=== PATIENT | female | born 1980 | race Caucasian/White ===

== ENCOUNTER 2023-09-23 04:52 | Emergency (ER) | payer OTHER, SELFPAY ==
[2023-09-23 05:04] VITALS: PULSE 70; O2SAT 100
[2023-09-23 05:05] VITALS: BP 116/56; PULSE 71; O2SAT 100
[2023-09-23 05:06] VITALS: BP 116/56; PULSE 70; RESP 18; TEMP 36.8; O2SAT 100; BMI 29.8
--- NOTE | 2023-09-23 05:29 | DI.CT.S_ITS ---
PROCEDURE: CT ABDOMEN PELVIS W CON INDICATIONS: debilitating nausea and weight loss TECHNIQUE: After the administration of intravenous contrast, axial sections acquired from the lung bases to the pubic symphysis. Coronal and sagittal reformats were performed. For radiation dose reduction, the following was used: automated exposure control, adjustment of mA and/or kV according to patient size. COMPARISON: None. FINDINGS: Image quality: Diagnostic. Lower Chest: No significant findings. ABDOMEN: Liver: No solid mass. Gallbladder: Question gallstones. No wall thickening. Biliary ducts: No biliary dilation. Pancreas: No ductal dilation. Spleen: Size is within normal limits. Adrenal Glands: No adrenal nodules. Kidneys and Ureters: No hydronephrosis. No solid mass. No complex renal cystic lesion which requires follow up. Stomach and Bowel: Normal colonic caliber, without significant wall thickening. Diverticulosis. No acute diverticulitis. Peritoneum: No abnormal intraperitoneal fluid. No free air. Ventral Wall: No significant ventral hernia. Abdominal Nodes: No retroperitoneal or mesenteric adenopathy by size criteria. Vessels: Aorta and inferior vena cava are normal in size. PELVIS: Pelvic Organs: There is a 2.5 x 3.7 cm left ovarian cyst. Right ovary is unremarkable. Uterus is grossly normal. Cervix is prominent. No pathological free-fluid in pelvis.. Bladder: Bladder is not fully distended. There is mild perivesical stranding suggesting cystitis. Pelvic Nodes: No enlarged lymph nodes. Miscellaneous: No inguinal hernias are seen. Bones: No aggressive osseous abnormality. IMPRESSION: 1. Mild perivesical stranding suggesting cystitis. 2. Diverticulosis without diverticulitis. 3. Suspect cholelithiasis. No CT findings to suggest acute cholecystitis. No significant discrepancy with the night guard radiology preliminary report. Dictated by: Fermín Dalton M.D. on 09/23/2023 at 8:36 Approved by: Fermín Dalton M.D. on 09/23/2023 at 8:41
[2023-09-23 05:30] VITALS: BP 114/56; PULSE 68; O2SAT 100
--- NOTE | 2023-09-23 05:32 | ED.NAVMDI ---
HPI - Nausea/Vomiting/Diarrhea General Chief complaint: Nausea/Vomiting/Diarrhea Stated complaint: shakes, sweats, chills, nausea Time Seen by Provider: 09/23/23 05:08 Source: patient Mode of arrival: Ambulatory History of Present Illness HPI Narrative: 42-year-old woman with a six-month history of debilitating nausea occasional vomiting over 40 lb weight loss presents with debilitating nausea. She has been seen 3 times at [facility] including yesterday morning. Blood work has been unremarkable. She finds that she responds better to Phenergan than she does to Zofran but Zofran can occasionally be helpful. She has seen her primary care doctor was referred to Gastroenterology with whom she had a consultation yesterday. She is going to be scheduled for both upper and lower endoscopy. She does vape marijuana and has considered the possibility of cannabinoid hyperemesis syndrome. She has not found that hot showers have been particularly helpful in controlling the severe nausea, they are helpful with anxiety overall. She is willing to completely discontinue marijuana for 6 months to see if this is influencing her symptoms. She describes a lifelong history of GI difficulties most consistent with irritable bowel syndrome as well as lactose intolerance. Her was recently deployed so stressors were a bit higher however he has been home for the last couple of weeks and her symptoms have not significantly improved. She notes when she does have episodes of severe nausea she has abdominal cramping, profuse diaphoresis. She has recently been diagnosed with significant anemia and despite iron supplementation does not seem to be absorbing iron well. She is scheduled for IV iron infusion in the near future. She does have continued heavy menstrual cycles and has been referred to gynecology for additional evaluation. When symptoms 1st started she did have ultrasound of the right upper quadrant that did not suggest gallstones. She does not describe reflux type symptoms. Has not noted black or tarry stools nor any bloody emesis. Only medication is 50 mg of Zofran and she has been on this same dose of medication for over 2 years. Related Data Previous Rx's Medication Instructions Recorded metoclopramide HCl 10 mg tablet 10 mg PO Q6H PRN nausea and 09/23/23 vomiting #60 tabs promethazine 25 mg tablet 25 mg PO TID PRN nausea and 09/23/23 vomiting #30 tabs Allergies Allergy/AdvReac Type Severity Reaction Status Date / Time No Known Drug Allergies Allergy Verified 09/23/23 05:16 Review of Systems Review of Systems Narrative: Pertinent positive and negative findings as per HPI Patient History Medical History (Updated 09/23/23 @ 05:47 by Barbara Wright MD) Nausea alone Iron deficiency anemia Social History Smoking Status: Never smoker Smoking Status: Never smoker Exam Initial Vital Signs Initial Vital Signs: Vital Signs Temperature 98.2 F 09/23/23 05:06 Pulse Rate 70 09/23/23 05:06 Respiratory Rate 18 09/23/23 05:06 Blood Pressure 116/56 L 09/23/23 05:06 Pulse Oximetry 100 09/23/23 05:06 Oxygen Delivery Method Room Air 09/23/23 05:06 General: Healthy appearing, mildly diaphoretic, waves of nausea but Able to give a complete and coherent history. Well-nourished well-developed HEENT: Moist mucous membranes, normal sclera with reactive pupils, Respiratory: Lungs are clear to auscultation, no wheezing no rales no rhonchi. Full and symmetrical air movement Cardiac: Regular rate and rhythm no murmurs no bruits Abdomen: Soft, mild tenderness in the upper quadrant without rebound or guarding. Slight distention with discomfort in the lower quadrants as well. No flank pain Neurologic: Grossly neurologically intact with no obvious asymmetries or abnormalities Extremities: No trauma, well perfused Psych: Cooperative, appropriate insight and affect Course Orders Ordered: ED Orders 09/23/23 05:20 HCG Quantitative /Beta subunit Stat 09/23/23 05:29 CT abdomen pelvis w con Stat Discontinued Medications Sodium Chloride (Normal Saline 0.9%) 1,000 mls @ 1,000 mls/hr IV BOLUS ONE Stop: 09/23/23 06:28 Last Infusion: 09/23/23 06:42 Dose: Infused Documented By: Admin: 09/23/23 05:35 Dose: 1,000 mls/hr Documented By: Metoclopramide HCl (Metoclopramide 10 Mg/2 Ml Inj) 10 mg IV NOW ONE Stop: 09/23/23 05:30 Last Admin: 09/23/23 05:35 Dose: 10 mg Documented By: AB Vital Signs Vital signs: Vital Signs - 8 hr 09/23/23 05:06 Temperature 98.2 F Pulse Rate 70 Respiratory Rate 18 Blood Pressure 116/56 L Pulse Oximetry 100 Oxygen Delivery Method Room Air MDM - Nausea/Vomiting/Diarrhea Lab Data Labs: Lab Results 09/23/23 Range/Units 05:20 HCG, Quant < 2.4 mIU/mL MDM Narrative Medical decision making narrative: CC: Debilitating morning nausea Complicating co-morbidities: 40 lb weight loss over the last 6 months concurrent with nausea, regular marijuana user, irritable bowel syndrome, lactose intolerance, iron-deficiency anemia, heavy menstrual cycle, Data collected from: patient Social determinants of health that may influence the patients condition: Medical records reviewed: Records from [facility] from yesterday are reviewed. She presented for similar findings. She improved with Phenergan was discharged home Differential considered:neoplastic process, hCG producing tumor, gastroparesis, cannabinoid hyperemesis syndrome, anxiety, gallbladder dysfunction, gastric outlet obstruction, abdominal migraine Exam documented above, pertinent findings include: Patient appears uncomfortable with her profuse nausea no actual vomiting. Mild diffuse abdominal tenderness Lab Test results independently reviewed as above. Pertinent findings: Labs done at [facility] less than 24 hours ago include a CBC showing white blood cell count at 9.2, H and H at 8.0 and 27.5 MCV is 65.8. Platelets are appropriate at 2:03 a.m. Chemistries are reassuring with normal creatinine at 0.7, no liver abnormalities appreciated Lipase is within normal limits Imaging studies independently reviewed: CT scan of the abdomen suggests bladder wall thickening however there is no clinical correlation to suggest bladder infection. No who stasis, colitis, diverticulitis, bowel obstruction, obstructive uropathy or acute appendicitis. Findings are reviewed with the patient as well Treatments: Fluids, parenteral Reglan Discussion: 6 months of debilitating nausea typically worse in the morning. Today she has had gallbladder ultrasound that did not show gallstone she has not had a HIDA study. She has had GI consult and is scheduled for upcoming upper and lower endoscopy. She has never had any imaging of her abdomen and a CT scan is done today showing no significant pathology to explain her symptoms. We did discuss stopping marijuana completely for 6 months to see if this helps she is willing to do so. We will send her home with prescriptions for Reglan to see if this helps prophylactically, Phenergan if symptoms continue to persist, she has a prescription for Zofran waiting to be picked up at the pharmacy. Findings, concerns, suggested next steps in her workup are all reviewed, questions are answered and she is safe for discharge Discharge Plan Departure Patient Disposition: Home Clinical Impression: Nausea, Abnormal weight loss Instructions: DI for Nausea -- Adult Activity Restrictions/Additional Instructions: Thank you for coming in today. Debilitating nausea can be incredibly frustrating I did not repeat blood work today as labs were unremarkable at [facility] yesterday. We did do a CT scan of your abdomen and pelvis that did not show any acute pathology. You have had a gallbladder ultrasound that did not show gallstones. You may consider discussing a HIDA study with your primary care doctor to further assess gallbladder function It will be important to follow through with scheduling upper and lower endoscopies as discussed with your cement mason maintenance In terms of medication to help with symptoms, I would recommend completely stopping marijuana for 6 months. I have given you a prescription for Phenergan which can make you sleepy and directly treats nausea. I have also given you a prescription for Reglan/metoclopramide which increases gastric motility so food moves through faster. This can be quite helpful prophylactically and can be taken before meals and before bed. This is a common medication we use to help treat gastroparesis. Prescriptions: New metoclopramide HCl 10 mg tablet 10 mg PO Q6H PRN (Reason: nausea and vomiting) Qty: 60 0RF promethazine 25 mg tablet 25 mg PO TID PRN (Reason: nausea and vomiting) Qty: 30 0RF Referrals: Sheron Lewis FNP-C [Primary Care Provider] - Stand Alone Forms: Patient Portal/API
[2023-09-23] MEDS: SODIUM CHLORIDE 0.9% 1,000 ML 1000 ML IV (05:35)
[2023-09-23] MEDS: METOCLOPRAMIDE 10 MG/2 ML INJ IV (05:35)
--- NOTE | 2023-09-23 05:46 | PC.NURSE ---
Pt states that she has been having off and on issues with nausea and being see by GI specialist. However, she was seen yesterday and now today for continued nausea symptoms.
[2023-09-23 05:59] LABS: HCG Quantitative /Beta subunit < 2.4 mIU/mL
[2023-09-23 06:00] VITALS: PULSE 65; O2SAT 99
[2023-09-23 06:30] VITALS: PULSE 77; O2SAT 100
== END 2023-09-23 07:17 | disposition home or self-care (01) ==
PROVIDERS: Emergency Provider Emergency Medicine; PCP Nurse Practitioner Family
DX: R11.2 Nausea with vomiting, unspecified (principal); R63.4 Abnormal weight loss
CPT/HCPCS: 36415; 74177; 84702; 96361; 96374; 99284; J2765; Q9967

== ENCOUNTER 2024-03-21 07:22 | Emergency (ER) | payer OTHER, SELFPAY ==
[2024-03-21 07:29] VITALS: BP 117/51; PULSE 60; O2SAT 100
[2024-03-21 07:30] VITALS: BP 117/51; PULSE 59; PULSE 62; RESP 16; TEMP 36.9; O2SAT 100; O2SAT 99; BMI 29.8
--- NOTE | 2024-03-21 07:43 | ED.ANXIETY ---
HPI - Anxiety General Chief Complaint: Anxiety Stated Complaint: axiety attack, nausea Time Seen by Provider: 03/21/24 07:43 History of Present Illness HPI narrative: Patient is a 43-year-old female with a history of debilitating nausea with occasional vomiting has been seen in the past multiple times at different hospitals for the same. She tends to respond to Phenergan, has seen primary care and GI in the past. There was concern that patient may have cannabinoid hyperemesis but has a ?lifelong history of GI problems as well as lactose intolerance states that this has been under control over past several months and weeks given the fact that she was started on sertraline 75 mg as well as Reglan. However she states that all of her medications do not have any refills, called her primary care doctor but they are at the [employer] [facility] are unable to get in any sooner. She comes in complaining of increased anxiety, typical acid reflux with nausea. But denies any actual chest pain shortness of breath. She is requesting some of her medications here because she knows that this has helped in the past. She states that she was feeling fine until she stopped taking her sertraline because she was not able to get the refill. She states that she is frustrated because she was finally feeling better after he is medications and now she feels like she is ?going backwards. Related Data Previous Rx's Medication Instructions Recorded metoclopramide HCl 10 mg tablet 10 mg PO Q6H PRN nausea and 09/23/23 vomiting #60 tabs promethazine 25 mg tablet 25 mg PO TID PRN nausea and 09/23/23 vomiting #30 tabs hydroxyzine HCl 25 mg tablet 25 mg PO BID PRN anxiety 7 days #7 03/21/24 tabs sertraline 50 mg tablet 75 mg (1.5 x 50 mg) PO DAILY 2 03/21/24 weeks #21 tabs Allergies Allergy/AdvReac Type Severity Reaction Status Date / Time No Known Drug Allergies Allergy Verified 09/23/23 05:16 Review of Systems Review of Systems Narrative: General: Denies fever, chills, weight loss HEENT: Denies headache, eye drainage, eye irritation, head trauma, sore throat, voice change Cardiovascular: Denies any chest pain, palpitations, shortness of breath, tachycardia Respiratory: Denies any shortness of breath, cough, wheeze, stridor GI/: Positive for nausea,Denies any abdominal pain, vomiting, diarrhea, bright red blood per rectum, melanotic stools, urinary frequency, urinary retention, dysuria, hematuria MSK: Denies any joint pain, muscle pains, swelling Skin: Denies any rashes, lesions, discoloration Neuro: Denies any headache, lightheadedness, dizziness, fainting, weakness, positive for anxiety Psych: Denies SI/HI Patient History Medical History (Updated 03/21/24 @ 08:41 by Frantz Park DO) Nausea alone Iron deficiency anemia Social History Smoking Status: Never smoker Smoking Status: Never smoker Exam Narrative Exam Narrative: General: Cooperative, comfortable, well-developed, not in acute distress HEENT: Normocephalic, atraumatic, PERRLA, normal sclera, eyelids normal, Neck: Active full range of motion, atraumatic Chest: Normal to inspection, negative crepitus, no overlying erythema ecchymosis Respiratory: Normal respiratory effort, not in acute respiratory distress, clear to auscultation bilaterally negative cough, wheeze, tachypnea, rhonchi, rales Cardiology: Regular rate rhythm negative gallop, murmur, rubs GI/: Normal to inspection, soft, nonrigid, no tenderness to palpation, exam deferred MSK: Full range of active range of motion of all 4 extremities, atraumatic Skin: No rashes lesions noted Neuro: Alert awake oriented x3, moves all 4 extremities spontaneously, cranial nerves intact, able to answer all questions appropriately follows commands appropriately Psych: Cooperative, negative suicidal or homicidal ideations, patient tearful Initial Vital Signs Initial Vital Signs: Vital Signs Pulse Rate 60 03/21/24 07:29 Blood Pressure 117/51 L 03/21/24 07:29 Pulse Oximetry 100 03/21/24 07:29 Course Orders Ordered: ED Orders 03/21/24 08:00 BMP [Basic Metabolic Panel] Stat CBC Auto Diff [Complete Blood Count AUTO DIFF] Stat Famotidine (Famotidine 20 Mg/2 Ml Vial) 20 mg IV NOW DEBBIE Last Admin: 03/21/24 08:01 Dose: 20 mg Documented By: CTS Discontinued Medications Lorazepam (Lorazepam 2 Mg/Ml Inj) 1 mg IV NOW ONE Stop: 03/21/24 07:50 Last Admin: 03/21/24 08:00 Dose: 1 mg Documented By: KENNETH Sertraline HCl (Sertraline 50 Mg Tablet) 75 mg PO NOW ONE Stop: 03/21/24 07:51 Last Admin: 03/21/24 08:03 Dose: 75 mg Documented By: KENNETH Vital Signs Vital signs: Vital Signs - 8 hr 03/21/24 07:29 03/21/24 07:29 03/21/24 07:30 Temperature 98.5 F Pulse Rate 60 62 Respiratory Rate 16 Blood Pressure 117/51 L 117/51 L Pulse Oximetry 100 100 Oxygen Delivery Method Room Air 03/21/24 07:30 Temperature Pulse Rate 59 L Respiratory Rate Blood Pressure Pulse Oximetry 99 Oxygen Delivery Method MDM - Anxiety Differential Diagnosis Differential diagnosis: Likely panic disorder, acute anxiety and other (Electrolyte abnormality, GERD) Lab Data 03/21/24 08:00 03/21/24 08:00 Labs: Lab Results 03/21/24 Range/Units 08:00 WBC 6.1 (4.5-11.0) X10^3/uL RBC 4.44 (4.0-5.2) X10^6/uL Hgb 11.2 L (12.0-16.0) g/dL Hct 33.9 L (36-46) % MCV 76.4 L (80-100) fL MCH 25.3 L (26-34) PG MCHC 33.1 (30-36) % RDW 26.1 H (11.6-14.8) % Plt Count 144 L (150-400) X10^3/uL Neut % (Auto) 71.2 (50-75) % Lymph % (Auto) 21.3 L (25-40) % [place] % (Auto) 5.7 (3-14) % Eos % (Auto) 0.5 L (2-4) % Baso % (Auto) 1.3 (0-2) % Neut # (Auto) 4400 (6328-7155) /uL Lymph # (Auto) 1300 (4400-0382) /uL [place] # (Auto) 300 (0-900) /uL Eos # (Auto) 0 (0-450) /uL Baso # (Auto) 100 (0-100) /uL RBC Morphology See below Anisocytosis 2+ H Ovalocytes 1+ H Sodium 137 (137-145) mmol/L Potassium 4.0 (3.4-5.1) mmol/L Chloride 103 (98-107) mmol/L Carbon Dioxide 26 (22-32) mmol/L BUN 7 (7-17) mg/dL Creatinine 0.65 (0.52-1.04) mg/dL Estimated GFR > 60 (>60) mL/min BUN/Creatinine Ratio 10.8 (6-22) Glucose 99 (70-100) mg/dL Calcium 9.4 (8.4-10.2) mg/dL MDM Narrative Medical decision making narrative: 43-year-old female with a history of GERD, anxiety presents for exacerbation of both. She states that she just ran out of her 75 mg sertraline approximately 4 days ago as well as her Reglan, she states that these medications have significantly helped with her long-lasting history of GI issues. She denies any actual abdominal pain. She states that she has not been able to take these medications for past 4 days because she ran out of refills, has tried to call her primary care doctor but they can not get in for another month due to them being at the [facility]. Lab work unremarkable, after administration medication patient states she is feeling ?a lot better all symptoms have resolved. I informed her that I can send her home with 2 weeks of her Zoloft but she needs to follow up with her primary care doctor. I also informed her that I can send her home with Atarax for as needed medication for anxiety. She verbalized understanding of this agrees to being discharged home with outpatient follow up Discharge Plan Departure Patient Disposition: Home Clinical Impression: Acute anxiety Activity Restrictions/Additional Instructions: Please follow-up with your primary care doctor Please read the discharge instructions sheet carefully and bring all papers to all doctor follow-up visits, as it may contain information that your doctor may want to see. Disease processes change and evolve, if your symptoms worsen or if you develop any new symptoms that are concerning to you please return for evaluation. Your evaluation today does not show any evidence of any life-threatening/serious illnesses requiring admission to the hospital or surgery. Please follow-up with your doctor for re-evaluation in approximately 1 day. Seek immediate medical attention for any worrisome symptoms. Prescriptions: New sertraline 50 mg tablet 75 mg PO DAILY 14 Days Qty: 21 0RF hydroxyzine HCl 25 mg tablet 25 mg PO BID PRN (Reason: anxiety) 7 Days Qty: 7 0RF No Action metoclopramide HCl 10 mg tablet 10 mg PO Q6H PRN (Reason: nausea and vomiting) Qty: 60 0RF promethazine 25 mg tablet 25 mg PO TID PRN (Reason: nausea and vomiting) Qty: 30 0RF Referrals: Sheron Lewis, GROOVING MACHINE OPERATOR-C [Primary Care Provider] - Stand Alone Forms: Patient Portal/API
[2024-03-21] MEDS: LORazepam 2 MG/ML INJ 1 MG IV (08:00)
[2024-03-21] MEDS: FAMOTIDINE 20 MG/2 ML VIAL IV (08:01)
[2024-03-21] MEDS: SERTRALINE 50 MG TABLET 75 MG PO (08:03)
[2024-03-21 08:11] LABS: Add Manual Diff / Slide Review NO; Basophils Absolute Auto 100 /uL (0-100); Basophils Percent Auto 1.3 % (0-2); Eosinophils Absolute Auto 0 /uL (0-450); Eosinophils Percent Auto 0.5 % (2-4); Hematocrit 33.9 % (36-46); Hemoglobin 11.2 g/dL (12.0-16.0); Lymphocytes Absolute Auto 1300 /uL (1100-4500); Lymphocytes Percent Auto 21.3 % (25-40); Mean Corpuscular HGB Conc 33.1 % (30-36); Mean Corpuscular Hemoglobin 25.3 PG (26-34); Mean Corpuscular Volume 76.4 fL (80-100); Monocytes Absolute Auto 300 /uL (0-900); Monocytes Percent Auto 5.7 % (3-14); Neutrophils Absolute Auto 4400 /uL (1500-7000); Neutrophils Percent Auto 71.2 % (50-75); Platelet Count 144 X10^3/uL (150-400); Red Blood Cell Count 4.44 X10^6/uL (4.0-5.2); Red Cell Distribution Width 26.1 % (11.6-14.8); White Blood Cell Count 6.1 X10^3/uL (4.5-11.0)
[2024-03-21 08:21] LABS: BUN Creatinine Ratio 10.8 (6-22); Blood Urea Nitrogen 7 mg/dL (7-17); Calcium 9.4 mg/dL (8.4-10.2); Carbon Dioxide 26 mmol/L (22-32); Chloride 103 mmol/L (98-107); Estimated Glomerular Filt Rate > 60 mL/min (>60); Glucose 99 mg/dL (70-100); HEMOLYSIS < 15 (0-50); Sodium 137 mmol/L (137-145)
[2024-03-21 08:25] LABS: Anisocytosis 2+
[2024-03-21 08:27] LABS: Ovalocytes 1+
--- NOTE | 2024-03-21 08:27 | PC.NURSE ---
Pt reports acute on chronic anxiety. woke her up at 0300 this morning- reports feeling nauseated and panicky. Ran out of her zoloft and [facility] for her. AOx3 with at side. no vomiting. denies CP/SOB. VS WNL.
== END 2024-03-21 08:48 | disposition home or self-care (01) ==
PROVIDERS: Emergency Provider Student in an Organized Health Care Education/Training Program; PCP Nurse Practitioner Family
DX: F41.9 Anxiety disorder, unspecified (principal); K21.9 Gastro-esophageal reflux disease without esophagitis
CPT/HCPCS: 36415; 80048; 85025; 96374; 96375; 99284; J2060